=== PATIENT | female | born 1990 | race Hispanic/Latino ===

== ENCOUNTER 2017-02-15 21:21 | Emergency (ER) | payer SELFPAY ==
[2017-02-15] MEDS ORDERED: ACETAMINOPHEN 325 MG TAB ONE (21:50)
[2017-02-15] MEDS ORDERED: SODIUM CHLORIDE 0.9% 1000ML 1,000 ML IV ONE (22:04)
[2017-02-15 22:08] LABS: APPEARANCE,URINE Clear (CLEAR); BILIRUBIN,URINE Negative (NEGATIVE); COLOR,URINE Yellow (YELLOW); GLUCOSE, URINE (UA) Negative (NEGATIVE); KETONES,URINE 15 mg/dL (NEGATIVE); LEUKOCYTE ESTERASE ,URINE Small (NEGATIVE); NITRATE,URINE Negative (NEGATIVE); OCCULT BLOOD,URINE Large (NEGATIVE); PROTEIN,URINE Trace (NEGATIVE)
[2017-02-15 22:13] LABS: HCG,QUAL RESULT NEGATIVE (NEGATIVE)
[2017-02-15 22:29] LABS: BACTERIA,URINE Rare /HPF (None Seen); MUCUS,URINE Moderate LPF (None Seen); SQUAMOUS EPITHELIAL CELL,UR Rare /LPF (0-2)
[2017-02-15] MEDS ORDERED: ONDANSETRON ODT 4 MG TAB ONE (22:57)
== END 2017-02-15 23:18 | disposition home or self-care (01) ==
LOC: EDH 21:21
DX: K52.9 Noninfective gastroenteritis and colitis, unspecified (principal); J06.9 Acute upper respiratory infection, unspecified; Z72.0 Tobacco use
CPT/HCPCS: 81001; 81025; 87804 ×2; 96360; 99284; J7030

== ENCOUNTER 2017-03-10 15:28 | Emergency (ER) | payer SELFPAY | END 2017-03-10 16:02 | disposition home or self-care (01) | LOC: EDH 15:28 | DX: N89.8 Other specified noninflammatory disorders of vagina (principal); L29.8 Other pruritus; Z72.0 Tobacco use | CPT/HCPCS: 99281 ==